=== PATIENT | female | born 1970 | race Caucasian/White ===

== ENCOUNTER → 2016-10-09 | Outpatient (CLI) | payer OTHER | LOC: CIMAGING 16:19 | PROVIDERS: ATTEND Internal Medicine | DX: S69.91XA Unspecified injury of right wrist, hand and finger(s), initial encounter (principal) | CPT/HCPCS: 73130-PO ==

== ENCOUNTER → 2017-05-07 | Outpatient (CLI) | payer BC | LOC: FIMAGING 13:04 | DX: E04.9 Nontoxic goiter, unspecified (principal) ==

== ENCOUNTER → 2017-05-20 | Outpatient (CLI) | payer BC ==
[~2017-05-20] MED LIST: LIDOCAINE 1% 300 MG/30 ML SDV ONE
--- NOTE | 2017-05-20 13:16 | PDRADPN ---
Radiology Procedure Note Date of Procedure: 05/20/17 Radiologist: Rich Santoyo Anesthesia: Local (Specify) Pre-op Diagnosis: multinodular goiter Post-op Diagnosis: same Indication: increasing size of bilobed right thyroid nodule Procedure: US guided FNA Finding(s): heterogeneous, circumscribed bilobed right thyroid nodule Inf/Abcess present in the surg proc area at time of surgery?: No Depth: Superfical (Skin SQ) EBL: Minimal Specimen(s): Three 25G FNAs obtained from inferior part of nodule Three 25G FNAs obtained from superior part of nodule
== END ==
LOC: FIMAGING 12:02
PROVIDERS: ATTEND Internal Medicine
PROC: 0G9H3ZX Drainage of Right Thyroid Gland Lobe, Percutaneous Approach, Diagnostic (ICD-10-PCS; principal; 2017-05-20)
DX: E04.2 Nontoxic multinodular goiter (principal)